=== PATIENT | female | born 1970 | race Caucasian/White ===

== ENCOUNTER → 2016-04-02 | Outpatient (CLI) | payer OTHER ==
--- NOTE | 2016-04-06 07:02 | MM ---
Reason for exam: screening (asymptomatic). Last mammogram was performed 1 year and 3 months ago. Physical Findings: A clinical breast exam by your physician is recommended on an annual basis and results should be correlated with mammographic findings. MG Screening Mammo w CAD Bilateral CC and MLO view(s) were taken. Prior study comparison: January 07, 2015, bilateral MG screening mammo w CAD. The breast tissue is heterogeneously dense. This may lower the sensitivity of mammography. Finding: There is a 5 mm equal density (isodense), indistinct mass in the outer quadrant, posterior position of the left breast seen on CC view, 9cm from the nipple. There is a new distortion in the right breast upper outer quadrant. New finding since January 07, 2015. ASSESSMENT: Incomplete: need additional imaging evaluation, BI-RAD 0 RECOMMENDATION: Special view mammogram of both breasts. If lesion persists on supplemental views, image directed ultrasound is recommended. [facility] will attempt to contact patient to return for supplemental views and ultrasound if indicated.
== END | disposition home or self-care (01) ==
LOC: RADMAMWWP 13:55
PROVIDERS: ATTEND Family Medicine
DX: Z12.31 Encounter for screening mammogram for malignant neoplasm of breast (principal); R92.2 Inconclusive mammogram

== ENCOUNTER → 2016-04-10 | Outpatient (CLI) | payer OTHER ==
--- NOTE | 2016-04-13 08:08 | MM ---
Reason for exam: additional evaluation requested from abnormal screening. Last mammogram was performed less than 1 month ago. Physical Findings: Nurse did not find any significant physical abnormalities on exam. MG Work Up Mamm w CAD BILAT Bilateral spot compression CC and LM view(s) were taken. Spot compression MLO view(s) were taken of the right breast. Prior study comparison: April 02, 2016, bilateral MG screening mammo w CAD. January 07, 2015, bilateral MG screening mammo w CAD. Finding: There is a 5 mm indistinct round mass in the outer quadrant, posterior middle position of the left breast. No distinct lesion on additional views in the right breast. These results were verbally communicated with the patient and result sheet given to the patient on 04/10/16. ASSESSMENT: Incomplete: need additional imaging evaluation, BI-RAD 0 RECOMMENDATION: Ultrasound of the left breast.
--- NOTE | 2016-04-13 08:09 | USB ---
Reason for exam: additional evaluation requested from abnormal screening. US Breast Workup Limited LT Left breast ultrasound demonstrates a 0.2 x 0.2 x 0.2cm round lesion too small to characterize at 1 o'clock and a 0.6 x 0.7 x 0.3cm oval, mixed, hypoechoic lesion at 3 o'clock. These results were verbally communicated with the patient and result sheet given to the patient on 04/10/16. ASSESSMENT: Probably benign, BI-RAD 3 RECOMMENDATION: Follow-up diagnostic mammogram and ultrasound of the left breast in 6 months.
== END | disposition home or self-care (01) ==
LOC: RADMAMWWP 14:58
PROVIDERS: ATTEND Family Medicine
DX: R92.8 Other abnormal and inconclusive findings on diagnostic imaging of breast (principal)
CPT/HCPCS: 76642; G0204

== ENCOUNTER 2016-04-12 13:53 | Emergency (ER) | payer OTHER ==
[2016-04-12] MEDS ORDERED: KETOROLAC 60 MG/2 ML VIAL IM STA (15:08)
--- NOTE | 2016-04-12 15:08 | ED ---
General Adult HPI - General Chief complaint: Headache Stated complaint: Severe Migraine Time Seen by Provider: 04/12/16 15:00 Source: patient, RN notes reviewed Mode of arrival: ambulatory Limitations: no limitations - History of Present Illness Initial comments: Patient 46-year-old female who presents emergency room today with chief complaint of migraine headache. She does admit that she gets tension in the back of her neck which causes these migraines. States is chronic she been having them since she was a child. She states Toradol usually relieves it. Patient also admits to with the change in weather some sinus issues but has been using her Flonase and Tylenol sinus at home for the symptoms. Patient states she is feeling a little bit better while being here in the emergency room waiting to be seen. She states that she thinks it's improving on its own. Patient denies any other complaints or symptoms. She states all the symptoms are chronic that she is expressing the past and there is nothing new today. Patient denies any recent fever, chills, shortness of breath, chest pain, back pain, abdominal pain, nausea or vomiting, numbness or tingling, dysuria or hematuria, constipation or diarrhea, visual changes, or any other complaints. - Related Data Home Medications Medication Instructions Recorded Confirmed Butalb/Acetaminophen/Caffeine 1 - 2 cap PO Q4HR 12/06/15 04/12/16 [Fioricet 50-300-40 mg Capsule] DULoxetine HCL [Cymbalta] 60 mg PO DAILY 12/06/15 04/12/16 Fluticasone Propionate [Flonase 1 spray EA NOSTRIL DAILY PRN 12/06/15 04/12/16 Allergy Relief] Methadone [Dolophine] 10 mg PO Q8HR 12/06/15 04/12/16 Methocarbamol [Robaxin] 750 mg PO HS 12/06/15 04/12/16 buPROPion HCL [Wellbutrin SR] 150 mg PO HS 12/06/15 04/12/16 traZODone HCL 50 mg PO HS 12/06/15 04/12/16 Turmeric Root Extract [Turmeric] 500 mg PO DAILY 04/12/16 04/12/16 Allergies Allergy/AdvReac Type Severity Reaction Status Date / Time Sulfa (Sulfonamide Allergy Rash/Hives Verified 04/12/16 15:01 Antibiotics) sumatriptan [From Imitrex] Allergy Anaphylaxis Verified 04/12/16 15:01 sumatriptan succinate Allergy Anaphylaxis Verified 04/12/16 15:01 [From Imitrex] Review of Systems ROS Statement: Those systems with pertinent positive or pertinent negative responses have been documented in the HPI. ROS Other: All systems not noted in ROS Statement are negative. Past Medical History Additional Past Medical History / Comment(s): migraines History of Any Multi-Drug Resistant Organisms: None Reported Past Surgical History: Appendectomy, Section Additional Past Surgical History / Comment(s): oopherectomy Past Psychological History: Anxiety, Depression Smoking Status: Current every day smoker Past Alcohol Use History: Occasional Past Drug Use History: None Reported General Exam - General Exam Comments Initial Comments: General: The patient is awake and alert, in no distress, and does not appear acutely ill. Eye: Pupils are equal, round and reactive to light, extra-ocular movements are intact. No nystagmus. There is normal conjunctiva bilaterally. No signs of icterus. Ears, nose, mouth and throat: There are moist mucous membranes and no oral lesions. No tenderness over the frontal or maxillary sinus. Neck: The neck is supple, there is no tenderness or JVD. Cardiovascular: There is a regular rate and rhythm. No murmur, rub or gallop is appreciated. Respiratory: Lungs are clear to auscultation, respirations are non-labored, breath sounds are equal. No wheezes, stridor, rales, or rhonchi. Musculoskeletal: Normal ROM, no tenderness. Strength 5/5. Sensation intact. Pulses equal bilaterally 2+. Neurological: A&O x 3. CN II-XII intact, There are no obvious motor or sensory deficits. Coordination appears grossly intact. Speech is normal. Skin: Skin is warm and dry and no rashes or lesions are noted. Psychiatric: Cooperative, appropriate mood & affect, normal judgment. Limitations: no limitations Course Vital Signs 04/12/16 14:26 Temperature 97.7 F Pulse Rate 71 Respiratory 18 Rate Blood Pressure 113/71 O2 Sat by Pulse 100 Oximetry Medical Decision Making - Medical Decision Making Patient admits that while she was waking up he seems she began feeling a little bit better. She admits will typically helps with these headaches. Patient will be given shot of Toradol discharged home advised continue with her sinus medication and advised follow-up the family doctor or return here to the emergency room if any symptoms increase worsen. She states understanding and is in agreement with this plan. Disposition Clinical Impression: Migraine Disposition: HOME SELF-CARE Condition: Good Instructions: Acute Headache (ED) Additional Instructions: Please use medication as discussed. Please follow-up with family doctor in the next 2 days of symptoms have not improved. Please return to emergency room if the symptoms increase or worsen or for any other concerns. Time of Disposition: 15:07
[2016-04-12 15:32] VITALS: BP 117/77; PULSE 74; RESP 16; TEMP 99.1
== END 2016-04-12 15:32 | disposition home or self-care (01) ==
LOC: EC 13:53
DX: G43.909 Migraine, unspecified, not intractable, without status migrainosus (principal); F41.9 Anxiety disorder, unspecified; F32.9 Major depressive disorder, single episode, unspecified; F17.200 Nicotine dependence, unspecified, uncomplicated; Z79.51 Long term (current) use of inhaled steroids; Z79.891 Long term (current) use of opiate analgesic; Z88.8 Allergy status to other drugs, medicaments and biological substances; Z88.2 Allergy status to sulfonamides; Z79.899 Other long term (current) drug therapy
CPT/HCPCS: 99283; 96372; J1885

== ENCOUNTER → 2016-04-27 | Outpatient (CLI) | payer OTHER ==
[2016-04-27 12:53] LABS: Basophils # (A) 0.1 k/uL (0-0.2); Basophils % (A) 1 %; CH 31.2; CHCM 34.1; Eosinophils # (A) 0.1 k/uL (0-0.7); Eosinophils % (A) 2 %; HCT 43.9 % (34.0-46.0); HDW 2.41; HGB 14.7 gm/dL (11.4-16.0); Luc # (Auto) 0.15; Luc % (Auto) 2; Lymphocytes # (A) 2.5 k/uL (1.0-4.8); Lymphocytes % (A) 34 %; MCH 30.7 pg (25.0-35.0); MCHC 33.4 g/dL (31.0-37.0); MCV 91.9 fL (80.0-100.0); Monocytes # (A) 0.3 k/uL (0-1.0); Monocytes % (A) 3 %; Neutrophils # (A) 4.5 k/uL (1.3-7.7); Neutrophils % (A) 59 %; RBC 4.78 m/uL (3.80-5.40); RDW 12.4 % (11.5-15.5); WBC 7.5 k/uL (3.8-10.6); WBC (Perox) 7.34
[2016-04-27 12:59] LABS: ALT 33 U/L (9-52); AST 25 U/L (14-36); Alkaline Phosphatase 98 U/L (38-126); Anion Gap 11 mmol/L; Blood Urea Nitrogen 17 mg/dL (7-17); Calcium 9.8 mg/dL (8.4-10.2); Carbon Dioxide 27 mmol/L (22-30); Chloride 104 mmol/L (98-107); Cholesterol 224 mg/dL (<200); Glucose 92 mg/dL (74-99); HDL Cholesterol 48 mg/dL (40-60); Non-African American GFR(MDRD) >60 (>60 ml/min/1.73 sqM); Potassium 4.2 mmol/L (3.5-5.1); Sodium 142 mmol/L (137-145); Total Bilirubin 0.6 mg/dL (0.2-1.3); Triglycerides 158 mg/dL (<150)
== END ==
LOC: LABWHC1 12:21
PROVIDERS: ATTEND Family Medicine
DX: Z09 Encounter for follow-up examination after completed treatment for conditions other than malignant neoplasm (principal); Z72.0 Tobacco use
CPT/HCPCS: 36415; 80053; 80061; 84443; 84480; 85025

== ENCOUNTER 2016-04-28 12:13 | Emergency (ER) | payer OTHER ==
[2016-04-28] MEDS ORDERED: KETOROLAC 60 MG/2 ML VIAL IM STA (13:30)
--- NOTE | 2016-04-28 13:36 | ED ---
General Adult HPI - General Chief complaint: Back Pain/Injury Stated complaint: back pain Time Seen by Provider: 04/28/16 13:00 Source: patient, RN notes reviewed Mode of arrival: ambulatory Limitations: no limitations - History of Present Illness Initial comments: This is a 46-year-old female who presents with muscle spasm in the back and neck. 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 Patient states she's been trying heating pads that she takes Robaxin for this pain but it is not helping. Patient is requesting Toradol as this usually helps with her pain. Patient denies any fall or injury, patient did not hit her head. Patient denies any increasing lower back pain. Patient denies any numbness/tingling/weakness or radicular pain.Patient denies any recent fever, chills, shortness breath, chest pain, abdominal pain, nausea/vomiting/diarrhea, hematuria, headache, or visual changes, or any other complaints. - Related Data Home Medications Medication Instructions Recorded Confirmed Butalb/Acetaminophen/Caffeine 1 - 2 cap PO Q4HR 12/06/15 04/12/16 [Fioricet 50-300-40 mg Capsule] DULoxetine HCL [Cymbalta] 60 mg PO DAILY 12/06/15 04/12/16 Fluticasone Propionate [Flonase 1 spray EA NOSTRIL DAILY PRN 12/06/15 04/12/16 Allergy Relief] Methadone [Dolophine] 10 mg PO Q8HR 12/06/15 04/12/16 Methocarbamol [Robaxin] 750 mg PO HS 12/06/15 04/12/16 buPROPion HCL [Wellbutrin SR] 150 mg PO HS 12/06/15 04/12/16 traZODone HCL 50 mg PO HS 12/06/15 04/12/16 Turmeric Root Extract [Turmeric] 500 mg PO DAILY 04/12/16 04/12/16 Previous Rx's Medication Instructions Recorded Cyclobenzaprine [Flexeril] 5 mg PO BID 3 Days 04/28/16 Allergies Allergy/AdvReac Type Severity Reaction Status Date / Time Sulfa (Sulfonamide Allergy Rash/Hives Verified 04/28/16 12:33 Antibiotics) sumatriptan [From Imitrex] Allergy Anaphylaxis Verified 04/28/16 12:33 sumatriptan succinate Allergy Anaphylaxis Verified 04/28/16 12:33 [From Imitrex] Review of Systems ROS Statement: Those systems with pertinent positive or pertinent negative responses have been documented in the HPI. ROS Other: All systems not noted in ROS Statement are negative. Past Medical History Additional Past Medical History / Comment(s): migraines History of Any Multi-Drug Resistant Organisms: None Reported Past Surgical History: Appendectomy, Section Additional Past Surgical History / Comment(s): oopherectomy Past Psychological History: Anxiety, Depression Smoking Status: Current every day smoker Past Alcohol Use History: Occasional Past Drug Use History: None Reported General Exam - General Exam Comments Initial Comments: General: The patient is awake and alert, in no distress, and does not appear acutely ill. Neck: There is tenderness to the left side neck muscles and to the left side trapezius muscle. The neck is supple, there is no JVD. Cardiovascular: There is a regular rate and rhythm. No murmur, rub or gallop is appreciated. Respiratory: Lungs are clear to auscultation, respirations are non-labored, breath sounds are equal. No wheezes, stridor, rales, or rhonchi. Musculoskeletal:There is tenderness to the paraspinal muscles of the upper thoracic spine. Patient has pain with rotating head to the left but is able to rotate the head to the right. Patient has full range of motion to upper and lower extremities, strength 5/5 and Sensation intact. Radial pulses 2+ bilaterally. Patient is ambulatory in the EC. Neurological: A&O x 3. CN II-XII intact, There are no obvious motor or sensory deficits. Coordination appears grossly intact. Speech is normal. Skin: Skin is warm and dry and no rashes or lesions are noted. Psychiatric: Normal mood and affect. 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 On physical exam There is tenderness to palpation of the paraspinal muscles of the upper thoracic spine. Patient also has tenderness to the left side neck and pain is worse with rotating head to the left, but patient is able to rotate head to the right. Patient is afebrile in the EC. Patient is requesting Toradol in the EC. I discussed that patient will receive Toradol in the EC and a short prescription for Flexeril. I discussed that patient should not take Robaxin while she is taking Flexeril. I discussed sedation effects. I discussed return parameters. I discussed that patient needs to follow-up with her primary care provider in one to 2 days or return to the EC for any worsening symptoms or for any further concerns. Patient was receptive to this plan patient will be discharged home. Disposition Clinical Impression: Muscle spasm, Cervical strain Disposition: HOME SELF-CARE Condition: Good Instructions: Cervical Strain (ED) Additional Instructions: Please continue use of warm heating pads to areas of pain. Please continue use of ibuprofen, Tylenol and Motrin. Please use Flexeril as prescribed and do not drink alcohol or drive while on this medication as it may make you drowsy. Please discontinue Robaxin while taking Flexeril. Please use medication as discussed. Please follow-up with family doctor in the next 2 days of symptoms have not improved. Please return to emergency room if the symptoms increase or worsen or for any other concerns. Prescriptions: Cyclobenzaprine [Flexeril] 5 mg PO BID 3 Days Referrals: Melony Carnes MD [Primary Care Provider] - 1-2 days Isabella Leone MD [STAFF PHYSICIAN] - 1-2 days Ritesh Wong III, MD [STAFF PHYSICIAN] - 1-2 days Time of Disposition: 13:35
[2016-04-28 13:53] VITALS: BP 95/72; PULSE 70; RESP 14; TEMP 98.3
== END 2016-04-28 13:53 | disposition home or self-care (01) ==
LOC: EC 12:13
DX: S16.1XXA Strain of muscle, fascia and tendon at neck level, initial encounter (principal); X50.0XXA Overexertion from strenuous movement or load, initial encounter; Y93.F2 Activity, caregiving, lifting; Y92.009 Unspecified place in unspecified non-institutional (private) residence as the place of occurrence of the external cause; G43.909 Migraine, unspecified, not intractable, without status migrainosus; F32.9 Major depressive disorder, single episode, unspecified; F41.9 Anxiety disorder, unspecified; F17.200 Nicotine dependence, unspecified, uncomplicated; Z79.891 Long term (current) use of opiate analgesic; Z79.51 Long term (current) use of inhaled steroids; Z79.899 Other long term (current) drug therapy; Z88.2 Allergy status to sulfonamides; Z88.8 Allergy status to other drugs, medicaments and biological substances
CPT/HCPCS: 99283; 96372; J1885

== ENCOUNTER → 2016-07-24 | Outpatient (CLI) | payer OTHER ==
--- NOTE | 2016-07-27 07:01 | MM ---
Reason for exam: follow-up at short interval from prior study. Last mammogram was performed 3 months ago. Physical Findings: Nurse did not find any significant physical abnormalities on exam. MG Diagnostic Mammo LT w CAD CC and MLO view(s) were taken of the left breast. Prior study comparison: April 10, 2016, bilateral MG work up mamm w CAD BILAT. April 02, 2016, bilateral MG screening mammo w CAD. There are scattered fibroglandular densities. Stable nodular density upper outer quadrant left breast. No significant new findings when compared with previous films. These results were verbally communicated with the patient and result sheet given to the patient on 07/24/16. ASSESSMENT: Benign, BI-RAD 2 RECOMMENDATION: Routine screening mammogram of both breasts in 1 year.
--- NOTE | 2016-07-27 07:03 | USB ---
Reason for exam: additional evaluation requested from abnormal screening. US Breast LT Left breast ultrasound includes all four quadrants, the retroareolar region and axilla. Finding demonstrates a 0.2 x 0.3 x 0.2cm oval too small to characterize lesion at 1 o'clock. No significant new findings when compared with previous films. These results were verbally communicated with the patient and result sheet given to the patient on 07/24/16. ASSESSMENT: Benign, BI-RAD 2 RECOMMENDATION: Routine screening mammogram of both breasts in 1 year.
== END | disposition home or self-care (01) ==
LOC: RADMAMWWP 13:30
PROVIDERS: ATTEND Family Medicine
DX: N60.02 Solitary cyst of left breast (principal)
CPT/HCPCS: 76641; G0206

== ENCOUNTER 2016-08-08 19:29 | Emergency (ER) | payer OTHER ==
[2016-08-08 19:46] VITALS: BP 113/64; PULSE 90; RESP 18; TEMP 98
--- NOTE | 2016-08-08 19:58 | ED ---
Skin/Abscess/FB HPI - General Chief complaint: Skin/Abscess/Foreign Body Stated complaint: Lump on arm Time Seen by Provider: 08/08/16 19:44 Source: patient, RN notes reviewed Mode of arrival: ambulatory - History of Present Illness Initial comments: 46-year-old female presents emergency 5 chief complaint of abscess to the right forearm. Patient states that she started with a small bump and is slowly gotten worse. Patient states it is tender to touch. Patient has a history of MRSA or history of abscesses in the past. Patient denies any trauma or injury to the arm. Patient states that she was concerned due to the swelling and pain so she thought that she should be evaluated.Patient denies any recent fever, chills, shortness of breath, chest pain, back pain, abdominal pain, nausea vomiting, numbness or tingling, dysuria or hematuria, constipation or diarrhea, headaches or visual changes, or any other current symptoms. - Related Data Home Medications Medication Instructions Recorded Confirmed Butalb/Acetaminophen/Caffeine 1 - 2 cap PO Q4HR 12/06/15 04/28/16 [Fioricet 50-300-40 mg Capsule] DULoxetine HCL [Cymbalta] 60 mg PO DAILY 12/06/15 04/28/16 Fluticasone Propionate [Flonase 1 spray EA NOSTRIL DAILY PRN 12/06/15 04/28/16 Allergy Relief] Methadone [Dolophine] 10 mg PO Q8HR 12/06/15 04/28/16 Methocarbamol [Robaxin] 750 mg PO HS 12/06/15 04/28/16 buPROPion HCL [Wellbutrin SR] 150 mg PO HS 12/06/15 04/28/16 traZODone HCL 50 mg PO HS 12/06/15 04/28/16 Turmeric Root Extract [Turmeric] 500 mg PO DAILY 04/12/16 04/28/16 Previous Rx's Medication Instructions Recorded Cyclobenzaprine [Flexeril] 5 mg PO BID 3 Days 04/28/16 Clindamycin [Cleocin] 450 mg PO Q8HR #90 capsule 08/08/16 Allergies Allergy/AdvReac Type Severity Reaction Status Date / Time Sulfa (Sulfonamide Allergy Rash/Hives Verified 04/28/16 13:54 Antibiotics) sumatriptan [From Imitrex] Allergy Anaphylaxis Verified 04/28/16 13:54 sumatriptan succinate Allergy Anaphylaxis Verified 04/28/16 13:54 [From Imitrex] Review of Systems ROS Statement: Those systems with pertinent positive or pertinent negative responses have been documented in the HPI. ROS Other: All systems not noted in ROS Statement are negative. Past Medical History Additional Past Medical History / Comment(s): migraines History of Any Multi-Drug Resistant Organisms: None Reported Past Surgical History: Appendectomy, Section Additional Past Surgical History / Comment(s): oopherectomy Past Psychological History: Anxiety, Depression Smoking Status: Current every day smoker Past Alcohol Use History: Rare Past Drug Use History: None Reported General Exam - General Exam Comments Initial Comments: General: The patient is awake and alert, in no distress, and does not appear acutely ill. Neck: The neck is supple, there is no tenderness. Cardiovascular: There is a regular rate and rhythm. No murmur, rub or gallop is appreciated. Respiratory: Lungs are clear to auscultation, respirations are non-labored, breath sounds are equal. No wheezes, stridor, rales, or rhonchi. Musculoskeletal: sensation intact with 2+ pulses right upper joint. Full range of motion of right shoulder right elbow and right wrist. Patient appeared to have a circular erythematous abscess to the right forearm. 5 out of 5 strength throughout. Neurological: CN II-XII intact, There are no obvious motor or sensory deficits. Coordination appears grossly intact. Speech is normal. Skin: Skin is warm and dry and no rashes or lesions are noted. Psychiatric: Normal mood and affect. Course Vital Signs 08/08/16 19:44 Temperature 98.0 F Pulse Rate 90 Respiratory 18 Rate Blood Pressure 113/64 O2 Sat by Pulse 97 Oximetry Procedures - Procedures Initial comment: Procedure: Incision and drainage The skin overlying the abscess was prepped with Betadine, and anesthetized with 1% lidocaine without epinephrine. A #11 scalpel was then used to incise the abscess. Some purulent material was then extracted from the lesion. Gauze dressing placed on top, The patient tolerated the procedure well. Medical Decision Making - Medical Decision Making 46-year-old female presents to the emergency Department chief complaint of right forearm abscess. At this time the patient under went I&D. We discussed care follow-up return parameters. We discussed the follow-up and care. Patient states she understood all questions have been answered. She will be discharged. Disposition Clinical Impression: Abscess of right forearm Disposition: HOME SELF-CARE Condition: Stable Instructions: Abscess (ED), Abscess Incision and Drainage (ED) Additional Instructions: Please use medication as discussed. Please follow up with family doctor if symptoms have not improved over the next two days. Please return to the emergency room if your symptoms increase or worsen or for any other concerns. Prescriptions: Clindamycin [Cleocin] 450 mg PO Q8HR #90 capsule Referrals: Melony Carnes MD [Primary Care Provider] - 1-2 days Time of Disposition: 19:58
== END 2016-08-08 20:04 | disposition home or self-care (01) ==
LOC: EC 19:29
DX: L02.413 Cutaneous abscess of right upper limb (principal); F32.9 Major depressive disorder, single episode, unspecified; F41.9 Anxiety disorder, unspecified; F17.200 Nicotine dependence, unspecified, uncomplicated; Z79.899 Other long term (current) drug therapy; Z88.2 Allergy status to sulfonamides; Z88.8 Allergy status to other drugs, medicaments and biological substances
CPT/HCPCS: 10060; 99283

== ENCOUNTER 2016-08-14 13:23 | Emergency (ER) | payer OTHER ==
[2016-08-14 13:29] VITALS: BP 110/75; TEMP 98.3
[2016-08-14 13:35] VITALS: RESP 18
[2016-08-14] MEDS ORDERED: ACETAMINOPHEN TAB 325 MG TAB PO STA (13:42)
[2016-08-14] MEDS ORDERED: IPRATROPIUM-ALBUTEROL 3 ML NEB INHALATION STA (13:44)
--- NOTE | 2016-08-14 13:59 | ED ---
URI HPI - General Chief Complaint: Upper Respiratory Infection Stated Complaint: sore throat Time Seen by Provider: 08/14/16 13:32 Source: patient Mode of arrival: ambulatory Limitations: no limitations - History of Present Illness Initial Comments: Patient is a 46-year-old white female presenting to the emergency department with medical history significant for seasonal ALLERGIES and current nicotine dependence. Patient presents to the emergency department with chief complaint of cough and sore throat that started approximately 4 days ago. Patient is currently being treated with clindamycin for an abscess on her right forearm. MD Complaint: sore throat Onset/Timin -: days(s) Severity: moderate Severity scale (1-10): 6 Quality: aching Consistency: intermittent Improves With: OTC nasal spray, gargling Associated Symptoms: nasal congestion, cough Treatments Prior to Arrival: none - Related Data Home Medications Medication Instructions Recorded Confirmed Butalb/Acetaminophen/Caffeine 1 - 2 cap PO Q4HR 12/06/15 04/28/16 [Fioricet 50-300-40 mg Capsule] DULoxetine HCL [Cymbalta] 60 mg PO DAILY 12/06/15 04/28/16 Fluticasone Propionate [Flonase 1 spray EA NOSTRIL DAILY PRN 12/06/15 04/28/16 Allergy Relief] Methadone [Dolophine] 10 mg PO Q8HR 12/06/15 04/28/16 Methocarbamol [Robaxin] 750 mg PO HS 12/06/15 04/28/16 buPROPion HCL [Wellbutrin SR] 150 mg PO HS 12/06/15 04/28/16 traZODone HCL 50 mg PO HS 12/06/15 04/28/16 Turmeric Root Extract [Turmeric] 500 mg PO DAILY 04/12/16 04/28/16 Previous Rx's Medication Instructions Recorded Cyclobenzaprine [Flexeril] 5 mg PO BID 3 Days 04/28/16 Clindamycin [Cleocin] 450 mg PO Q8HR #90 capsule 08/08/16 Albuterol Inhaler [Ventolin Hfa 1 - 2 puff INHALATION Q6HR PRN #1 08/14/16 Inhaler] inhaler Benzonatate [Tessalon Perles] 100 mg PO TID PRN #20 capsule 08/14/16 methylPREDNISolone Dose Pack 4 mg PO DIRECTED #21 package 08/14/16 [Medrol Dose Pack] Allergies Allergy/AdvReac Type Severity Reaction Status Date / Time Sulfa (Sulfonamide Allergy Rash/Hives Verified 08/14/16 13:51 Antibiotics) sumatriptan [From Imitrex] Allergy Anaphylaxis Verified 08/14/16 13:51 sumatriptan succinate Allergy Anaphylaxis Verified 08/14/16 13:51 [From Imitrex] Review of Systems ROS Statement: Those systems with pertinent positive or pertinent negative responses have been documented in the HPI. ROS Other: All systems not noted in ROS Statement are negative. Past Medical History Additional Past Medical History / Comment(s): migraines History of Any Multi-Drug Resistant Organisms: None Reported Past Surgical History: Appendectomy, Section Additional Past Surgical History / Comment(s): oopherectomy Past Psychological History: Anxiety, Depression Smoking Status: Current every day smoker Past Alcohol Use History: Rare Past Drug Use History: None Reported General Exam - General Exam Comments Initial Comments: GENERAL: Pt awake and alert, well-appearing, well-nourished, and in no acute distress. HEAD: Atraumatic, normocephalic. EYES: Pupils equal, round, and reactive to light, extraocular movements intact, sclera anicteric, conjunctiva are normal. ENT: Oropharynx slightly erythematous without exudates. Moist mucous membranes. No oral lesions noted. NECK:Normal range of motion, supple without lymphadenopathy. LUNGS: Breath sounds with mild expiratory wheeze to auscultation bilaterally. HEART: Heart S1, S2, no S3 or S4. Regular rate and rhythm. No murmurs, rubs or gallops. ABDOMEN: Soft, nontender, nondistended, normoactive bowel sounds. No guarding, no rebound. No masses or organomegaly appreciated. MUSCULOSKELETAL: Normal ROM, no tenderness. Strength 5/5. EXTREMITIES: Palpable peripheral pulses. No edema. NEUROLOGICAL: Pt oriented x 3. No focal deficits noted. Strength and sensation grossly intact. PSYCH: Normal mood, normal affect. SKIN: Warm, dry, intact. Normal turgor. Limitations: no limitations ENT exam: Present: TM's normal bilaterally, normal external ear exam Course Vital Signs 08/14/16 08/14/16 08/14/16 13:25 13:33 13:53 Temperature 98.3 F Pulse Rate 84 Respiratory 16 18 18 Rate Blood Pressure 110/75 O2 Sat by Pulse 95 Oximetry Medical Decision Making - Medical Decision Making Upper respiratory infection suspect viral. Patient educated on conservative measures and provided with prescription for Medrol Dosepak, Tessalon Perles, and albuterol inhaler. Patient instructed to follow-up with primary care physician. Patient agrees with treatment plan. Discharge instructions and return parameters reviewed. Disposition Clinical Impression: Upper respiratory infection Disposition: HOME SELF-CARE Condition: Good Instructions: Upper Respiratory Infection (ED) Additional Instructions: Increase water intake to 6-8 glasses of water daily. Continue Mucinex SR to prescribed. Continue Neti pot 3 times daily. Continue Claritin and Flonase. Continue Tylenol or Motrin for pain. Finish Medrol Dosepak. Continue albuterol inhaler every 4-6 hours 1-2 puffs as needed. Continue Tessalon Pearls 3 times daily as needed. Follow-up with primary care physician as directed. Please return to the emergency department if symptoms do not improve or get worse. Prescriptions: Albuterol Inhaler [Ventolin Hfa Inhaler] 1 - 2 puff INHALATION Q6HR PRN #1 inhaler PRN Reason: Shortness Of Breath Benzonatate [Tessalon Perles] 100 mg PO TID PRN #20 capsule PRN Reason: Cough methylPREDNISolone Dose Pack [Medrol Dose Pack] 4 mg PO DIRECTED #21 package Referrals: Melony Carnes MD [Primary Care Provider] - 1-2 days Time of Disposition: 13:57
[2016-08-14 14:17] VITALS: PULSE 76
== END 2016-08-14 14:10 | disposition home or self-care (01) ==
LOC: EC 13:23
DX: J06.9 Acute upper respiratory infection, unspecified (principal); F32.9 Major depressive disorder, single episode, unspecified; F17.200 Nicotine dependence, unspecified, uncomplicated; Z88.2 Allergy status to sulfonamides; Z88.8 Allergy status to other drugs, medicaments and biological substances; Z79.899 Other long term (current) drug therapy
CPT/HCPCS: 94640; 99283

== ENCOUNTER 2016-08-20 10:57 | Emergency (ER) | payer OTHER ==
[2016-08-20 11:04] VITALS: RESP 16; TEMP 97.7
[2016-08-20] MEDS ORDERED: METOCLOPRAMIDE 5 MG/ML 2 ML VIAL IM ONE (11:25)
[2016-08-20] MEDS ORDERED: KETOROLAC 60 MG/2 ML VIAL IM STA (11:25)
[2016-08-20] MEDS ORDERED: MORPHINE SULFATE 10 MG/ML SYRINGE IM STA (11:25)
--- NOTE | 2016-08-20 11:37 | ED ---
General Adult HPI - General Chief complaint: Headache Stated complaint: MIGRAINE Time Seen by Provider: 08/20/16 11:21 Source: patient, RN notes reviewed Mode of arrival: ambulatory Limitations: no limitations - History of Present Illness Initial comments: Patient is a pleasant 46-year-old female presenting to the emergency department complaining of headache. Onset was around 8 AM when she woke today. Headache has gradually worsened since that time. Headache is right frontal region. Patient has photophobia and mild nausea. Patient has had similar symptoms multiple times since age 5. Patient has had multiple CT/MRI studies. No fever. No weakness. - Related Data Home Medications Medication Instructions Recorded Confirmed Butalb/Acetaminophen/Caffeine 1 - 2 cap PO Q4HR PRN 12/06/15 08/14/16 [Fioricet 50-300-40 mg Capsule] DULoxetine HCL [Cymbalta] 60 mg PO DAILY 12/06/15 08/14/16 Fluticasone Propionate [Flonase 1 spray EA NOSTRIL DAILY PRN 12/06/15 08/14/16 Allergy Relief] Methadone [Dolophine] 10 mg PO Q8HR 12/06/15 08/14/16 Methocarbamol [Robaxin] 750 mg PO HS 12/06/15 08/14/16 buPROPion HCL [Wellbutrin SR] 150 mg PO HS 12/06/15 08/14/16 traZODone HCL 50 mg PO HS 12/06/15 08/14/16 Turmeric Root Extract [Turmeric] 500 mg PO DAILY 04/12/16 08/14/16 Previous Rx's Medication Instructions Recorded Cyclobenzaprine [Flexeril] 5 mg PO BID 3 Days 04/28/16 Clindamycin [Cleocin] 450 mg PO Q8HR #90 capsule 08/08/16 Albuterol Inhaler [Ventolin Hfa 1 - 2 puff INHALATION Q6HR PRN #1 08/14/16 Inhaler] inhaler Benzonatate [Tessalon Perles] 100 mg PO TID PRN #20 capsule 08/14/16 methylPREDNISolone Dose Pack 4 mg PO DIRECTED #21 package 08/14/16 [Medrol Dose Pack] Allergies Allergy/AdvReac Type Severity Reaction Status Date / Time Sulfa (Sulfonamide Allergy Rash/Hives Verified 08/20/16 11:04 Antibiotics) sumatriptan [From Imitrex] Allergy Anaphylaxis Verified 08/20/16 11:04 sumatriptan succinate Allergy Anaphylaxis Verified 08/20/16 11:04 [From Imitrex] Review of Systems ROS Statement: Those systems with pertinent positive or pertinent negative responses have been documented in the HPI. ROS Other: All systems not noted in ROS Statement are negative. Constitutional: Denies: fever Eyes: Denies: eye pain ENT: Denies: ear pain Respiratory: Denies: cough Cardiovascular: Denies: chest pain Endocrine: Denies: fatigue Gastrointestinal: Reports: nausea. Denies: abdominal pain Genitourinary: Denies: dysuria Musculoskeletal: Denies: back pain Skin: Denies: rash Neurological: Reports: headache Past Medical History Additional Past Medical History / Comment(s): migraines History of Any Multi-Drug Resistant Organisms: None Reported Past Surgical History: Appendectomy, Section Additional Past Surgical History / Comment(s): oopherectomy Past Psychological History: Anxiety, Depression Smoking Status: Current every day smoker Past Alcohol Use History: Rare Past Drug Use History: None Reported General Exam Limitations: no limitations General appearance: alert, in no apparent distress Head exam: Present: atraumatic Eye exam: Present: normal appearance, PERRL, EOMI ENT exam: Present: normal oropharynx Neck exam: Present: normal inspection Respiratory exam: Present: normal lung sounds bilaterally Cardiovascular Exam: Present: regular rate, normal rhythm GI/Abdominal exam: Present: soft. Absent: tenderness Extremities exam: Present: normal inspection Neurological exam: Present: alert Expanded Patient oriented to: Present: person, place, time Cranial nerves: Facial Sensation: Normal Sensory exam: Upper Extremity Light Touch: Normal, Lower Extremity Light Touch: Normal Motor strength exam: RUE: 5, LUE: 5, RLE: 5, LLE: 5 Eye Response: (4) open spontaneously Motor Response: (6) obeys commands Verbal Response: (5) oriented Psychiatric exam: Present: normal affect, normal mood Skin exam: Present: normal color Course Vital Signs 08/20/16 11:02 Temperature 97.7 F Pulse Rate 71 Respiratory 16 Rate Blood Pressure 115/79 O2 Sat by Pulse 92 L Oximetry Medical Decision Making - Medical Decision Making Patient is comfortable with injections and discharged. Disposition Clinical Impression: Cephalgia Disposition: HOME SELF-CARE Condition: Stable Instructions: Acute Headache (ED) Additional Instructions: Please follow-up with your doctor in the next day or 2 for recheck. Return for fever, weakness, change or worsening symptoms or other concerns. Referrals: Melony Carnes MD [Primary Care Provider] - 1-2 days Time of Disposition: 11:37
[2016-08-20 12:08] VITALS: BP 110/77; PULSE 81
== END 2016-08-20 12:11 | disposition home or self-care (01) ==
LOC: EC 10:57
DX: R51 Headache (principal); R11.0 Nausea; H53.149 Visual discomfort, unspecified; F41.9 Anxiety disorder, unspecified; F32.9 Major depressive disorder, single episode, unspecified; F17.200 Nicotine dependence, unspecified, uncomplicated; Z53.20 Procedure and treatment not carried out because of patient's decision for unspecified reasons; Z79.899 Other long term (current) drug therapy; Z88.2 Allergy status to sulfonamides; Z88.8 Allergy status to other drugs, medicaments and biological substances; Z86.69 Personal history of other diseases of the nervous system and sense organs
CPT/HCPCS: 99283; 96372 ×2; J2270; J1885

== ENCOUNTER 2017-01-12 01:39 | Emergency (ER) | payer OTHER ==
[2017-01-12 01:44] VITALS: RESP 16
[2017-01-12] MEDS ORDERED: KETOROLAC 30 MG/ML 1 ML VIAL IM STA (02:07)
[2017-01-12] MEDS ORDERED: IBUPROFEN 600 MG STARTER PACK 4 TAB BTL PO STA (02:23)
[2017-01-12] MEDS ORDERED: CYCLOBENZAPRINE 10MG STARTER 3 TAB BTL PO STA (02:23)
--- NOTE | 2017-01-12 02:23 | ED ---
Back Pain HPI - General Chief Complaint: Back Pain/Injury Stated Complaint: back pain Time Seen by Provider: 01/12/17 01:50 Source: patient Limitations: no limitations - History of Present Illness Initial Comments: 46-year-old female patient presents to the emergency department today with complaints of lower thoracic spine pain. Patient states that she has had this pain over the last month. 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 She states that ever since she performed these shifts she has been having this pain. States that she has been seen by her primary doctor as well as evaluated here and did have x-rays performed. She states that she has bulging disks to the area. She states that she is post undergo MRI and has an appointment with her primary doctor, however this evening the pain was making it difficult for her to sleep. She denies any change in the pain over the last month. She states that the pain does radiate around her ribs. She states that she has had the rib pain with this for the last 2 weeks. She denies any shortness of breath, sweats, or chest pain with this. She states that she has been mildly nauseated over the last couple weeks as well but this is not unusual for her. She denies any radiation of the pain to her lower back or down her legs. She denies any numbness or tingling to her lower extremities. She denies any loss of bowel or bladder function. She denies any saddle anesthesia. Patient denies any recent rash, fever, chills,abdominal pain, vomiting, diarrhea, constipation, dizziness , weakness, hematuria, dysuria, urinary urgency, urinary frequency, headache, visual changes, or any other complaints. - Related Data Home Medications Medication Instructions Recorded Confirmed Butalb/Acetaminophen/Caffeine 1 - 2 cap PO Q4HR PRN 12/06/15 12/27/16 [Fioricet 50-300-40 mg Capsule] DULoxetine HCL [Cymbalta] 60 mg PO DAILY 12/06/15 12/27/16 Fluticasone Propionate [Flonase 1 spray EA NOSTRIL DAILY PRN 12/06/15 12/27/16 Allergy Relief] Methadone [Dolophine] 10 mg PO DAILY 12/06/15 12/27/16 Methocarbamol [Robaxin] 750 mg PO HS 12/06/15 12/27/16 buPROPion HCL [Wellbutrin SR] 150 mg PO HS 12/06/15 12/27/16 traZODone HCL 50 mg PO HS 12/06/15 12/27/16 Turmeric Root Extract [Turmeric] 500 mg PO DAILY 04/12/16 12/27/16 Previous Rx's Medication Instructions Recorded Cyclobenzaprine [Flexeril] 10 mg PO TID #15 tab 01/12/17 Ibuprofen [Motrin] 600 mg PO Q8HR PRN #30 tab 01/12/17 Allergies Allergy/AdvReac Type Severity Reaction Status Date / Time Sulfa (Sulfonamide Allergy Rash/Hives Verified 01/12/17 01:44 Antibiotics) sumatriptan [From Imitrex] Allergy Anaphylaxis Verified 01/12/17 01:44 sumatriptan succinate Allergy Anaphylaxis Verified 01/12/17 01:44 [From Imitrex] Review of Systems ROS Statement: Those systems with pertinent positive or pertinent negative responses have been documented in the HPI. ROS Other: All systems not noted in ROS Statement are negative. Past Medical History Additional Past Medical History / Comment(s): migraines History of Any Multi-Drug Resistant Organisms: None Reported Past Surgical History: Appendectomy, Section Additional Past Surgical History / Comment(s): oopherectomy Past Psychological History: Anxiety, Depression Smoking Status: Current every day smoker Past Alcohol Use History: Rare Past Drug Use History: None Reported General Exam Limitations: no limitations General appearance: alert, in no apparent distress, other (This is a well- developed, well-nourished adult female patient in no acute distress. Vital signs upon presentation are temperature 99.1F, pulse 99, respirations 16, blood pressure 117/58, pulse ox 99% on room air.) Eye exam: Present: normal appearance, PERRL, EOMI. Absent: scleral icterus, conjunctival injection, periorbital swelling Neck exam: Present: normal inspection, full ROM. Absent: tenderness, meningismus, lymphadenopathy Respiratory exam: Present: normal lung sounds bilaterally. Absent: respiratory distress, wheezes, rales, rhonchi, stridor Cardiovascular Exam: Present: regular rate, normal rhythm, normal heart sounds. Absent: systolic murmur, diastolic murmur, rubs, gallop, clicks Back exam: Present: normal inspection, tenderness (She did have some tenderness over the T11-T12 and L1 area.) Neurological exam: Present: alert, oriented X3, CN II-XII intact, other ( Strength in all 4 extremities 5/5.) Psychiatric exam: Present: normal affect, normal mood Skin exam: Present: warm, dry, intact, normal color. Absent: rash Course Vital Signs 01/12/17 01/12/17 01:42 02:56 Temperature 99.1 F 99 F Pulse Rate 99 66 Respiratory 16 16 Rate Blood Pressure 117/58 107/54 O2 Sat by Pulse 99 100 Oximetry Medical Decision Making - Medical Decision Making 46-year-old female patient presented to the emergency department today for evaluation of thoracic back pain. Physical examination was unremarkable. EKG was obtained and did show normal sinus rhythm with no ST elevation or depression. Did review the x-ray report of the thoracic spine from 12/18/2016 which showed thoracic spondylosis and scoliosis, review the x-ray report from of the ribs and chest which showed no rib fractures. Patient was given an injection of Toradol here in the department. She was given starter packs of both ibuprofen and Flexeril for home. She does take methadone for chronic back pain. She is instructed to follow-up with her primary care physician to undergo MRI. She is instructed to return here immediately for any new, worsening, or concerning symptoms. She verbalizes understanding and agrees with this plan. 01/12/17 04:13 EKG shows normal sinus rhythm with a ventricular rate of 85, IN interval 156, QRS duration 92, QT 348, QTC 414. No evidence of ST elevation or depression.= Disposition Clinical Impression: Back pain Disposition: HOME SELF-CARE Condition: Good Instructions: Back Pain (ED) Additional Instructions: Apply warm moist heat to the area. Take medications as directed. Follow-up with her primary care physician for further evaluation. Return here immediately for any new, worsening, or concerning symptoms. Prescriptions: Cyclobenzaprine [Flexeril] 10 mg PO TID #15 tab Ibuprofen [Motrin] 600 mg PO Q8HR PRN #30 tab PRN Reason: Pain Referrals: Melony Carnes MD [Primary Care Provider] - 1-2 days Time of Disposition: 02:23
[2017-01-12 02:57] VITALS: BP 107/54; PULSE 66; TEMP 99
== END 2017-01-12 02:56 | disposition home or self-care (01) ==
LOC: EC 01:39
DX: M54.6 Pain in thoracic spine (principal); R07.81 Pleurodynia; F32.9 Major depressive disorder, single episode, unspecified; F41.9 Anxiety disorder, unspecified; F17.200 Nicotine dependence, unspecified, uncomplicated; Z79.899 Other long term (current) drug therapy; Z88.2 Allergy status to sulfonamides; Z88.8 Allergy status to other drugs, medicaments and biological substances
CPT/HCPCS: 93005; 99283; 96372; J1885

== ENCOUNTER 2017-01-13 23:47 | Emergency (ER) | payer OTHER ==
[2017-01-13 23:52] VITALS: BP 120/59; PULSE 90; RESP 16; TEMP 100.2
[2017-01-14] MEDS ORDERED: KETOROLAC 30 MG/ML 1 ML VIAL IM STA (00:37)
--- NOTE | 2017-01-14 01:03 | XR ---
EXAMINATION TYPE: XR chest 2V DATE OF EXAM: 01/14/2017 COMPARISON: NONE HISTORY: Pain TECHNIQUE: Frontal and lateral views of the chest are obtained. FINDINGS: Heart and mediastinum are normal. Lungs are clear. Diaphragm is normal. Bony thorax is int act. There is no pleural effusion. On the lateral view there is major fissure seen that is prominent and there is probably a tiny amount of fluid in the fissure on the left side. IMPRESSION: Tiny amount of fluid in the left major fissure of uncertain significance.
[2017-01-14] MEDS ORDERED: RX INFO: IV CONTRAST WAS GIVEN 1 EACH MISC MISCELLANE PRN (01:21)
[2017-01-14 01:43] LABS: Basophils # (A) 0.1 k/uL (0-0.2); Basophils % (A) 1 %; CH 28.7; CHCM 31.5; Eosinophils # (A) 0.4 k/uL (0-0.7); Eosinophils % (A) 4 %; HCT 40.3 % (34.0-46.0); HDW 2.44; HGB 12.7 gm/dL (11.4-16.0); Luc # (Auto) 0.09; Luc % (Auto) 1; Lymphocytes # (A) 2.2 k/uL (1.0-4.8); Lymphocytes % (A) 24 %; MCH 28.7 pg (25.0-35.0); MCHC 31.4 g/dL (31.0-37.0); MCV 91.5 fL (80.0-100.0); Mean Platelet Volume 6.5; Monocytes # (A) 0.4 k/uL (0-1.0); Monocytes % (A) 5 %; Neutrophils % (A) 66 %; RBC 4.41 m/uL (3.80-5.40); WBC 9.1 k/uL (3.8-10.6); WBC (Perox) 9.38
[2017-01-14 01:54] LABS: ALT 31 U/L (9-52); AST 16 U/L (14-36); Alkaline Phosphatase 108 U/L (38-126); Anion Gap 7 mmol/L; Blood Urea Nitrogen 15 mg/dL (7-17); Calcium 9.3 mg/dL (8.4-10.2); Carbon Dioxide 26 mmol/L (22-30); Chloride 106 mmol/L (98-107); Glucose 94 mg/dL (74-99); Non-African American GFR(MDRD) >60 (>60 ml/min/1.73 sqM); Potassium 4.2 mmol/L (3.5-5.1); Sodium 139 mmol/L (137-145); Total Bilirubin 0.2 mg/dL (0.2-1.3); Total Protein 6.9 g/dL (6.3-8.2)
--- NOTE | 2017-01-14 02:14 | CT ---
EXAMINATION TYPE: CT thoracic spine wo con DATE OF EXAM: 01/14/2017 COMPARISON: NONE HISTORY: Thoracic pain CT DLP: 446.90 mGycm Automated exposure control for dose reduction was used. FINDINGS: At T8-9 there is some osteosclerosis in the vertebral bodies on both sides of the T8-9 disc space. Th ere are some erosions of the endplates anteriorly. There is abnormal increased soft tissue density in the paraspinal region on the right side more than the left at T10 and T9 T8 T7. I see no mass within the spinal canal. Paraspinal density measures up to 10 mm. I see no compression fracture. Vertebra have normal alignment. There is minor spurring of the endplates anteriorly. The posterior el ements are intact. IMPRESSION: THERE ARE CHANGES AT THE T8-9 DISC WITH EROSION OF THE ENDPLATES ANTERIORLY AND OSTEOSCLEROSIS CONSIS TENT WITH CHRONIC DISCITIS. THERE IS PARASPINAL INFLAMMATORY CHANGES EXTENDING FROM T7 TO T10. I SEE NO DRAINABLE FLUID COLLECTION. I SEE NO EVIDENCE OF A ABSCESS WITHIN THE SPINAL CANAL. THIS EXAM WAS DISCUSSED WITH THE ER AT 2:10 AM.
--- NOTE | 2017-01-14 02:27 | ED ---
Back Pain HPI - General Chief Complaint: Back Pain/Injury Stated Complaint: back pain Time Seen by Provider: 01/14/17 00:24 Source: patient Limitations: no limitations - History of Present Illness Initial Comments: 46-year-old female patient presents to the emergency department today for complaints of mid thoracic back pain that radiates into her bilateral ribs. Patient states that she has had this pain for about a month. Patient states that she has been evaluated for this by both her primary care physician and in the emergency department a couple of times. States that her primary doctor told her she had a bulging disc and was going to be scheduling an MRI for her. Patient states a couple weeks ago the pain started to encompass the ribs. Patient states that she had been managing her pain with her methadone that she takes for chronic pain. She has also been taking ibuprofen and Flexeril which she received as a prescription from her last emergency visit. She states that none of these things helped tonight and she has been unable to sleep. She comes in requesting an injection of Toradol. Upon arrival patient was febrile. Patient was unaware that she had a fever. She does report though that she has had fevers on and off for the last few days. States that yesterday her temperature was 101.5F. Patient denies any headache, neck pain, nasal congestion, sore throat, ear pain, abdominal pain, nausea, vomiting, hematuria, dysuria, urinary frequency, or urinary urgency. She states that she does have an intermittent cough with greenish yellow sputum production. She states that this is a chronic cough for her as she does smoke cigarettes. Patient denies any use of alcohol or street drugs. Denies any past history of IV drug abuse. - Related Data Home Medications Medication Instructions Recorded Confirmed Butalb/Acetaminophen/Caffeine 1 - 2 cap PO Q4HR PRN 12/06/15 12/27/16 [Fioricet 50-300-40 mg Capsule] DULoxetine HCL [Cymbalta] 60 mg PO DAILY 12/06/15 12/27/16 Fluticasone Propionate [Flonase 1 spray EA NOSTRIL DAILY PRN 12/06/15 12/27/16 Allergy Relief] Methadone [Dolophine] 10 mg PO DAILY 12/06/15 12/27/16 Methocarbamol [Robaxin] 750 mg PO HS 10/14/16 11/05/17 buPROPion HCL [Wellbutrin SR] 150 mg PO HS 12/06/15 12/27/16 traZODone HCL 50 mg PO HS 12/06/15 12/27/16 Turmeric Root Extract [Turmeric] 500 mg PO DAILY 04/12/16 12/27/16 Previous Rx's Medication Instructions Recorded Cyclobenzaprine [Flexeril] 10 mg PO TID #15 tab 01/12/17 Ibuprofen [Motrin] 600 mg PO Q8HR PRN #30 tab 01/12/17 Clindamycin [Cleocin] 450 mg PO Q6H #120 capsule 01/14/17 Allergies Allergy/AdvReac Type Severity Reaction Status Date / Time Sulfa (Sulfonamide Allergy Rash/Hives Verified 01/13/17 23:52 Antibiotics) sumatriptan [From Imitrex] Allergy Anaphylaxis Verified 01/13/17 23:52 sumatriptan succinate Allergy Anaphylaxis Verified 01/13/17 23:52 [From Imitrex] Review of Systems ROS Statement: Those systems with pertinent positive or pertinent negative responses have been documented in the HPI. ROS Other: All systems not noted in ROS Statement are negative. Past Medical History Additional Past Medical History / Comment(s): migraines History of Any Multi-Drug Resistant Organisms: None Reported Past Surgical History: Appendectomy, Section Additional Past Surgical History / Comment(s): oopherectomy Past Psychological History: Anxiety, Depression Smoking Status: Current every day smoker Past Alcohol Use History: Rare Past Drug Use History: None Reported General Exam Limitations: no limitations General appearance: alert, in no apparent distress, other (This is a well- developed, well-nourished adult female patient in no acute distress. Vital signs upon presentation were temperature 100.2F, pulse 90, respirations 16, blood pressure 120/59, pulse ox 98% on room air.) Eye exam: Present: normal appearance, PERRL, EOMI. Absent: scleral icterus, conjunctival injection, nystagmus, periorbital swelling ENT exam: Present: normal exam, normal oropharynx, mucous membranes moist Neck exam: Present: normal inspection, full ROM. Absent: tenderness, meningismus, lymphadenopathy Respiratory exam: Present: normal lung sounds bilaterally. Absent: respiratory distress, wheezes, rales, rhonchi, stridor Cardiovascular Exam: Present: regular rate, normal rhythm, normal heart sounds. Absent: systolic murmur, diastolic murmur, rubs, gallop, clicks GI/Abdominal exam: Present: soft, normal bowel sounds. Absent: distended, tenderness, guarding, rebound, rigid Extremities exam: Present: normal inspection, full ROM, normal capillary refill. Absent: tenderness, pedal edema, joint swelling, calf tenderness Back exam: Present: normal inspection, vertebral tenderness (Vertebral tenderness over the mid thoracic spine.) Neurological exam: Present: alert, oriented X3, CN II-XII intact, other ( Strength in all 4 extremities is 5/5.) Psychiatric exam: Present: normal affect, normal mood Skin exam: Present: warm, dry, intact, normal color. Absent: rash Course Vital Signs 01/13/17 23:49 Temperature 100.2 F H Pulse Rate 90 Respiratory 16 Rate Blood Pressure 120/59 O2 Sat by Pulse 98 Oximetry Medical Decision Making - Medical Decision Making 46-year-old female patient presented to the emergency department today for evaluation of mid thoracic back pain. Upon arrival patient was noted to have a fever. She reported intermittent fevers over the last few days with the highest being 101.5F yesterday. This is the patient's third visit to the emergency department for similar symptoms. Physical examination was significant for mid thoracic spinal tenderness. Patient did report a history of bulging disc in the thoracic spine and was scheduled to undergo MRI by her primary care physician. Did perform labs which did show an elevated ESR of 50. Chest x-ray showed a prominent major fissure on the left side with some fluid present. Patient also underwent computed tomography scan of the thoracic spine which did show a chronic discitis with bony destruction and paraspinal inflammatory changes. There was no evidence of abscess. Patient was informed of these findings, and it was recommended that she be transferred to a higher level of care for neurosurgical consult. 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 I did inform her of the seriousness of her condition, I discussed the risks of her leaving to include worsening of her symptoms, worsening of her infection, permanent disability, , and paralysis. She verbalizes understanding but stated that there was no way that she could stay at this time. I recommended that she stay for at least 1 dose of IV antibiotics to include nafcillin and vancomycin. She states that the sooner she gets home the sooner she would be able to return and she refused to stay for the antibiotics. Patient did verbalize understanding of the risks and did sign an AMA form. Patient was given a oral dose of clindamycin here in the department. She was given a prescription for this medication as well. She was urged to come back to this emergency department or any other emergency department as soon as possible. She is instructed to follow-up with her primary doctor if she is unable to return. She verbalizes that she will return this morning after contacting the family of her patient. - Lab Data Result diagrams: 01/14/17 01:35 01/14/17 01:35 Lab Results 01/14/17 01/14/17 Range/Units 01:35 01:35 WBC 9.1 (3.8-10.6) k/uL RBC 4.41 (3.80-5.40) m/uL Hgb 12.7 (11.4-16.0) gm/dL Hct 40.3 (34.0-46.0) % MCV 91.5 (80.0-100.0) fL MCH 28.7 (25.0-35.0) pg MCHC 31.4 (31.0-37.0) g/dL RDW 14.0 (11.5-15.5) % Plt Count 372 (150-450) k/uL Neutrophils % 66 % Lymphocytes % 24 % Monocytes % 5 % Eosinophils % 4 % Basophils % 1 % Neutrophils # 6.0 (1.3-7.7) k/uL Lymphocytes # 2.2 (1.0-4.8) k/uL Monocytes # 0.4 (0-1.0) k/uL Eosinophils # 0.4 (0-0.7) k/uL Basophils # 0.1 (0-0.2) k/uL ESR 50 H (0-20) mm/hr Sodium 139 (137-145) mmol/L Potassium 4.2 (3.5-5.1) mmol/L Chloride 106 (98-107) mmol/L Carbon Dioxide 26 (22-30) mmol/L Anion Gap 7 mmol/L BUN 15 (7-17) mg/dL Creatinine 0.70 (0.52-1.04) mg/dL Est GFR (MDRD) Af Amer >60 (>60 ml/min/1.73 sqM) Est GFR (MDRD) Non-Af >60 (>60 ml/min/1.73 sqM) Glucose 94 (74-99) mg/dL Calcium 9.3 (8.4-10.2) mg/dL Total Bilirubin 0.2 (0.2-1.3) mg/dL AST 16 (14-36) U/L ALT 31 (9-52) U/L Alkaline Phosphatase 108 (38-126) U/L Total Protein 6.9 (6.3-8.2) g/dL Albumin 3.7 (3.5-5.0) g/dL - Radiology Data Radiology results: report reviewed, image reviewed Two-view x-ray of the chest shows a heart and mediastinum are normal. Lungs are clear. Diaphragm is normal. Bony thorax is intact. There is no pleural effusion. On the lateral view there is major fissure seen at his prominent and there is probably a tiny amount of fluid in the fissure on the left side. Impression by Dr. Morris shows tiny amount of fluid in the left major fissure of uncertain significance. CT of the thoracic spine report reviewed in its entirety with impression by Dr. Morris shows changes at the T8 to 9 disc with erosion of the endplates anteriorly and osteosclerosis consistent with chronic discitis. There is paraspinal inflammatory changes extending from T7 to T10. I see no drainable fluid collection. I see no evidence of an abscess within the spinal canal. Disposition Clinical Impression: Discitis of thoracic region, Paraspinal mass Disposition: Left Against Medical Advice Condition: Serious Instructions: Fever in Adults (ED), Back Pain (ED) Additional Instructions: Take antibiotics as directed. Return here as soon as possible see can be admitted and transferred. Follow-up with your primary care physician as soon as possible. Prescriptions: Clindamycin [Cleocin] 450 mg PO Q6H #120 capsule Referrals: Melony Carnes MD [Primary Care Provider] - 1-2 days Time of Disposition: 02:49
[2017-01-14] MEDS ORDERED: IV VANCOMYCIN PER PHARMACY 1 EACH MISC MISCELLANE PRN (02:29)
[2017-01-14] MEDS ORDERED: NAFCILLIN 2 GM in SODIUM CHLORIDE 0.9% 100 ML IVPB STA (02:29)
[2017-01-14 02:38] LABS: Erythrocyte Sedimentation Rate 50 mm/hr (0-20)
[2017-01-14] MEDS ORDERED: CLINDAMYCIN 150 MG CAP PO STA (02:42)
== END 2017-01-14 03:09 | disposition left against medical advice (07) ==
LOC: EC 23:47
DX: M46.44 Discitis, unspecified, thoracic region (principal); R22.2 Localized swelling, mass and lump, trunk; R70.0 Elevated erythrocyte sedimentation rate; F32.9 Major depressive disorder, single episode, unspecified; F41.9 Anxiety disorder, unspecified; F17.200 Nicotine dependence, unspecified, uncomplicated; Z53.21 Procedure and treatment not carried out due to patient leaving prior to being seen by health care provider; Z88.2 Allergy status to sulfonamides; Z88.8 Allergy status to other drugs, medicaments and biological substances; Z79.899 Other long term (current) drug therapy
CPT/HCPCS: 99284; 96372; 36415; 80053; 85652; 85025; 71020; 72128; J1885

== ENCOUNTER 2017-01-14 06:46 | Observation (INO) | payer OTHER ==
[2017-01-14 06:53] VITALS: RESP 16
[2017-01-14] MEDS ORDERED: KETOROLAC 30 MG/ML 1 ML VIAL IVP STA (07:35)
--- NOTE | 2017-01-14 07:40 | ED ---
General Adult HPI - General Chief complaint: Back Pain/Injury Stated complaint: Back pain Time Seen by Provider: 01/14/17 07:21 Source: patient, RN notes reviewed Mode of arrival: ambulatory Limitations: no limitations - History of Present Illness Initial comments: Patient is a pleasant 46-year-old female presenting to the emergency Department with thoracic back pain. Symptoms have been going on for around a month. Patient has been in the emergency Department a couple of times recently. Patient did have computed tomography scan done last night showing discitis however patient needed to take care of things and left AGAINST MEDICAL ADVICE. Patient has return for admission. Patient did have fevers around a week ago however does not believe she was having fever since that time. Temperature on last visit was 100.2. Patient states discomfort is mid thoracic region and does radiate bilaterally. No weakness. No incontinence. Patient denies any history of IVDA. Patient is on methadone for history of chronic leg pain and states she usually only takes 1 dose or less daily. - Related Data Home Medications Medication Instructions Recorded Confirmed Butalb/Acetaminophen/Caffeine 1 - 2 cap PO Q4HR PRN 12/06/15 01/14/17 [Fioricet 50-300-40 mg Capsule] DULoxetine HCL [Cymbalta] 60 mg PO DAILY 12/06/15 01/14/17 Fluticasone Propionate [Flonase 1 spray EA NOSTRIL DAILY PRN 12/06/15 01/14/17 Allergy Relief] Methadone [Dolophine] 10 mg PO DAILY 12/06/15 01/14/17 Methocarbamol [Robaxin] 750 mg PO HS 12/06/15 01/14/17 buPROPion HCL [Wellbutrin SR] 150 mg PO HS 12/06/15 01/14/17 traZODone HCL 50 mg PO HS 12/06/15 01/14/17 Previous Rx's Medication Instructions Recorded Cyclobenzaprine [Flexeril] 10 mg PO TID #15 tab 01/12/17 Clindamycin [Cleocin] 450 mg PO Q6H #120 capsule 01/14/17 Allergies Allergy/AdvReac Type Severity Reaction Status Date / Time Sulfa (Sulfonamide Allergy Rash/Hives Verified 01/14/17 07:35 Antibiotics) sumatriptan [From Imitrex] Allergy Anaphylaxis Verified 01/14/17 07:35 sumatriptan succinate Allergy Anaphylaxis Verified 01/14/17 07:35 [From Imitrex] Review of Systems ROS Statement: Those systems with pertinent positive or pertinent negative responses have been documented in the HPI. ROS Other: All systems not noted in ROS Statement are negative. Constitutional: Reports: fever Eyes: Denies: eye pain ENT: Denies: ear pain Respiratory: Denies: cough Cardiovascular: Denies: palpitations Endocrine: Denies: fatigue Gastrointestinal: Denies: abdominal pain Genitourinary: Denies: dysuria Musculoskeletal: Reports: back pain Skin: Denies: rash Neurological: Denies: weakness Past Medical History Additional Past Medical History / Comment(s): migraines History of Any Multi-Drug Resistant Organisms: None Reported Past Surgical History: Appendectomy, Section Additional Past Surgical History / Comment(s): oopherectomy Past Psychological History: Anxiety, Depression Smoking Status: Current every day smoker Past Alcohol Use History: Rare Past Drug Use History: None Reported General Exam Limitations: no limitations General appearance: alert, in no apparent distress Head exam: Present: atraumatic Eye exam: Present: normal appearance, PERRL ENT exam: Present: normal oropharynx Neck exam: Present: normal inspection Respiratory exam: Present: normal lung sounds bilaterally Cardiovascular Exam: Present: regular rate, normal rhythm GI/Abdominal exam: Present: soft. Absent: tenderness Extremities exam: Present: normal inspection Back exam: Present: tenderness (Mild tenderness t8 through T10 region.) Neurological exam: Present: alert. Absent: motor sensory deficit Psychiatric exam: Present: normal affect, normal mood Skin exam: Present: normal color. Absent: rash Course Vital Signs 01/14/17 06:51 Temperature 98.5 F Pulse Rate 97 Respiratory 16 Rate Blood Pressure 109/59 O2 Sat by Pulse 97 Oximetry - Reevaluation(s) Reevaluation #1: 01/14/17 07:37 Computed tomography scan from earlier shows T8/T9 discitis with T7 through T10 paraspinal inflammation. 01/14/17 07:40 Dr. Kirk has been paged for admission. For hospital call. 01/14/17 07:58 Case was discussed with Dr. Kirk, who will admit. EKG Findings - EKG Comments: EKG Findings:: Normal sinus rhythm 75. IA 154. QRS 90. QT 356. QTc 397. Normal axis. Low QRS voltage. Poor R-wave progression. No acute ST change. Medical Decision Making - Lab Data Result diagrams: 01/14/17 08:00 01/14/17 08:00 Disposition Clinical Impression: Discitis of thoracic region Disposition: ADMITTED IP TO THIS HOSP Condition: Serious
[2017-01-14] MEDS ORDERED: VANCOMYCIN IV PER PHARMACY 1 EACH MISC MISCELLANE PRN (07:58)
[2017-01-14] MEDS: SODIUM CHLORIDE 0.9% 500 ML IV SCH ×2 (07:58→08:48)
[2017-01-14] MEDS ORDERED: AMPICILLIN-SULBACTAM 3 GM in SODIUM CHLORIDE 0.9% 100 ML IVPB STA (07:58)
[2017-01-14] MEDS ORDERED: HYDROcodone/APAP 5-325MG 1 EACH TAB PO PRN (07:59)
[2017-01-14] MEDS ORDERED: NALOXONE 0.4 MG/ML 1 ML VIAL IV PRN (07:59)
[2017-01-14] MEDS ORDERED: ACETAMINOPHEN TAB 325 MG TAB PO PRN (07:59)
[2017-01-14] MEDS ORDERED: KETOROLAC 30 MG/ML 1 ML VIAL IVP PRN (07:59)
[2017-01-14] MEDS ORDERED: VANCOMYCIN 1,500 MG in SODIUM CHLORIDE 0.9% 250 ML IVPB STA (08:03)
[2017-01-14 08:10] LABS: Basophils # (A) 0.1 k/uL (0-0.2); Basophils % (A) 1 %; Eosinophils # (A) 0.4 k/uL (0-0.7); Eosinophils % (A) 5 %; HCT 38.5 % (34.0-46.0); Lymphocytes # (A) 2.4 k/uL (1.0-4.8); Lymphocytes % (A) 26 %; MCH 28.7 pg (25.0-35.0); MCHC 31.3 g/dL (31.0-37.0); MCV 91.9 fL (80.0-100.0); Mean Platelet Volume 6.6; Monocytes # (A) 0.4 k/uL (0-1.0); Monocytes % (A) 5 %; Neutrophils # (A) 5.8 k/uL (1.3-7.7); Neutrophils % (A) 63 %; Platelet Count 368 k/uL (150-450); RBC 4.19 m/uL (3.80-5.40); RDW 14.1 % (11.5-15.5); WBC 9.2 k/uL (3.8-10.6)
[2017-01-14 08:18] LABS: INR 0.9 (<1.2); Partial Thromboplastin Time 26.7 sec (22.0-30.0); Prothrombin Time 9.7 sec (9.0-12.0)
[2017-01-14 08:29] LABS: ALT 26 U/L (9-52); Albumin 3.9 g/dL (3.5-5.0); Alkaline Phosphatase 103 U/L (38-126); Anion Gap 9 mmol/L; Blood Urea Nitrogen 19 mg/dL (7-17); Calcium 9.5 mg/dL (8.4-10.2); Carbon Dioxide 25 mmol/L (22-30); Chloride 107 mmol/L (98-107); Glucose 88 mg/dL (74-99); Potassium 4.4 mmol/L (3.5-5.1); Sodium 141 mmol/L (137-145); Total Bilirubin 0.2 mg/dL (0.2-1.3); Total Protein 7.4 g/dL (6.3-8.2)
[2017-01-14 08:52] LABS: AST 18 U/L (14-36)
[2017-01-14 08:53] VITALS: BP 95/57; PULSE 76; TEMP 97.3
[2017-01-14 09:04] LABS: Appearance,Urine Cloudy (Clear); Bacteria,Urine Rare /hpf; Bilirubin,Urine 1+ (Negative); Blood,Urine Negative (Negative); Color,Urine Dark Yellow; Glucose,Urine (UA) Negative (Negative); Ketones,Urine Trace (Negative); Leukocyte Esterase,Urine Large (Negative); Mucus,Urine Many /hpf; Nitrite,Urine Negative (Negative); PH, Urine 5.5 (5.0-8.0); Protein,Urine 1+ (Negative); RBC,Urine 3 /hpf (0-5); Squamous Epithelial Cell,Urine 14 /hpf (0-4); WBC,Urine 16 /hpf (0-5)
[2017-01-14] MEDS ORDERED: AMPICILLIN-SULBACTAM 3 GM in SODIUM CHLORIDE 0.9% 100 ML IVPB SCH (16:00)
[2017-01-14] MEDS ORDERED: VANCOMYCIN 1,250 MG in SODIUM CHLORIDE 0.9% 250 ML IVPB SCH (18:00)
--- NOTE | 2017-01-15 04:54 | HP ---
HISTORY AND PHYSICAL CHIEF COMPLAINT: Back pain and discitis. HISTORY OF PRESENT ILLNESS: This lady was admitted through the emergency room to the floor. After she arrived on the floor, she signed herself out. There is no history that could be taken or physical performed. She was admitted to the hospital diagnosis with discitis. PLAN: Plan was to have her evaluated by Infectious Disease, but she signed out. ONI / SHARIF: [id number] /
--- NOTE | 2017-01-15 08:34 | DS ---
DISCHARGE SUMMARY CHIEF COMPLAINT: Diskitis. HISTORY OF PRESENT ILLNESS: No history is obtained because she signed out. PHYSICAL EXAM: No physical exam is done because she signed out. FINAL DIAGNOSIS: Diskitis of the dorsal spine and she signed out AMA and was not treated or seen in consultation. She is given no discharge prescriptions or instructions. MMODL / MANUELN: [id number] /
== END 2017-01-14 10:35 | disposition left against medical advice (07) ==
LOC: EC 06:46 → 5MS5E 07:59 → INTOOBSV 07:59 → 5MS5E 08:33
PROVIDERS: ADMIT Family Medicine; ATTEND Family Medicine
DX: M46.44 Discitis, unspecified, thoracic region (principal); F32.9 Major depressive disorder, single episode, unspecified; F41.9 Anxiety disorder, unspecified; F17.200 Nicotine dependence, unspecified, uncomplicated; G43.909 Migraine, unspecified, not intractable, without status migrainosus; G89.29 Other chronic pain; M79.606 Pain in leg, unspecified; Z79.891 Long term (current) use of opiate analgesic; Z79.899 Other long term (current) drug therapy; Z90.49 Acquired absence of other specified parts of digestive tract; Z88.2 Allergy status to sulfonamides; Z88.8 Allergy status to other drugs, medicaments and biological substances
CPT/HCPCS: 96365; 96375; 99285; 36415; 93005; 80053; 83605; 85025; 85610; 85730; 81001; 87040; 87086; G0378; J1885; J0295; 96361; 96374

== ENCOUNTER 2017-01-20 03:22 | Emergency (ER) | payer OTHER ==
[2017-01-20 03:27] VITALS: BP 114/66; PULSE 96; RESP 18; TEMP 99.2
[2017-01-20] MEDS ORDERED: KETOROLAC 60 MG/2 ML VIAL IM STA (03:38)
--- NOTE | 2017-01-20 03:41 | ED ---
General Adult HPI - General Chief complaint: Back Pain/Injury Stated complaint: t-spine pain Time Seen by Provider: 01/20/17 03:29 Source: patient, RN notes reviewed Mode of arrival: ambulatory Limitations: no limitations - History of Present Illness Initial comments: 47-year-old female presents emergency department with a chief complaint of back pain. Patient was diagnosed with cystitis she was admitted to the hospital started on clindamycin. She states that she continues to have this back discomfort. She states there is nothing we can do for her here. She states she 's been taking her medications. There is no new fever. She denies any loss by bladder function. She states that she just wants her Toradol and then to go home. She states the pain is moderate in the center of her back. She denies any other symptoms. Patient denies any recent fever, chills, shortness of breath , chest pain, abdominal pain, nausea vomiting, numbness or tingling, dysuria or hematuria, constipation or diarrhea, headaches or visual changes, or any other current symptoms. - Related Data Home Medications Medication Instructions Recorded Confirmed Butalb/Acetaminophen/Caffeine 1 - 2 cap PO Q4HR PRN 12/06/15 01/20/17 [Fioricet 50-300-40 mg Capsule] DULoxetine HCL [Cymbalta] 60 mg PO DAILY 12/06/15 01/20/17 Fluticasone Propionate [Flonase 1 spray EA NOSTRIL DAILY PRN 12/06/15 01/20/17 Allergy Relief] Methadone [Dolophine] 10 mg PO DAILY 12/06/15 01/20/17 Methocarbamol [Robaxin] 750 mg PO HS 12/06/15 01/20/17 buPROPion HCL [Wellbutrin SR] 150 mg PO HS 12/06/15 01/20/17 traZODone HCL 50 mg PO HS 12/06/15 01/20/17 Previous Rx's Medication Instructions Recorded Cyclobenzaprine [Flexeril] 10 mg PO TID #15 tab 01/12/17 Clindamycin [Cleocin] 450 mg PO Q6H #120 capsule 01/14/17 Allergies Allergy/AdvReac Type Severity Reaction Status Date / Time Sulfa (Sulfonamide Allergy Rash/Hives Verified 01/14/17 07:35 Antibiotics) sumatriptan [From Imitrex] Allergy Anaphylaxis Verified 01/14/17 07:35 sumatriptan succinate Allergy Anaphylaxis Verified 01/14/17 07:35 [From Imitrex] Review of Systems ROS Statement: Those systems with pertinent positive or pertinent negative responses have been documented in the HPI. ROS Other: All systems not noted in ROS Statement are negative. Past Medical History Additional Past Medical History / Comment(s): migraines History of Any Multi-Drug Resistant Organisms: None Reported Past Surgical History: Appendectomy, Section Additional Past Surgical History / Comment(s): oopherectomy Past Psychological History: Anxiety, Depression Smoking Status: Current every day smoker Past Alcohol Use History: Rare Past Drug Use History: None Reported General Exam Limitations: no limitations General appearance: alert, in no apparent distress ENT exam: Present: normal exam, mucous membranes moist Neck exam: Present: normal inspection. Absent: tenderness, meningismus, lymphadenopathy Respiratory exam: Present: normal lung sounds bilaterally. Absent: respiratory distress, wheezes, rales, rhonchi, stridor Cardiovascular Exam: Present: regular rate, normal rhythm, normal heart sounds. Absent: systolic murmur, diastolic murmur, rubs, gallop, clicks Extremities exam: Present: normal inspection, full ROM, normal capillary refill. Absent: tenderness, pedal edema, joint swelling, calf tenderness Back exam: Present: normal inspection, full ROM, tenderness (Due the lower thoracic and upper lumbar spine). Absent: CVA tenderness (R), CVA tenderness (L ), muscle spasm, paraspinal tenderness, vertebral tenderness Neurological exam: Present: alert, oriented X3 Psychiatric exam: Present: normal affect, normal mood Skin exam: Present: warm, dry, intact, normal color. Absent: rash Course Vital Signs 01/20/17 03:23 Temperature 99.2 F Pulse Rate 96 Respiratory 18 Rate Blood Pressure 114/66 O2 Sat by Pulse 97 Oximetry Medical Decision Making - Medical Decision Making 47-year-old female presents emergency Department chief complaint of back pain. This time we discussed thorough workup with lab work we discussed imaging we did discuss additional testing. Patient states she does not want have this done. She has had this done she just wants TO GO HOME. AT THIS TIME WE DISCUSSED THAT WE CANNOT TELL HER FOR SURE THAT IS NOT WORSENING. SHE STATED THAT SHE WILL FOLLOW-UP WITH HER DOCTOR FOR THAT SHE JUST NEEDS TO GO HOME AT THIS TIME. THIS TIME WE WILL RESPECT HER WISHES WE WILL GIVE HER TORADOL INJECTION PATIENT WILL BE DISCHARGED. WE DISCUSSED RISKS OF THIS. Disposition Clinical Impression: Back pain Disposition: HOME SELF-CARE Condition: Stable Instructions: Acute Low Back Pain (ED) Additional Instructions: Please use medication as discussed. Please follow up with family doctor if symptoms have not improved over the next two days. Please return to the emergency room if your symptoms increase or worsen or for any other concerns. Referrals: Melony Carnes MD [Primary Care Provider] - 1-2 days Time of Disposition: 03:41
== END 2017-01-20 03:54 | disposition home or self-care (01) ==
LOC: EC 03:22
DX: M54.9 Dorsalgia, unspecified (principal); F32.9 Major depressive disorder, single episode, unspecified; F41.9 Anxiety disorder, unspecified; F17.200 Nicotine dependence, unspecified, uncomplicated; Z79.891 Long term (current) use of opiate analgesic; Z79.899 Other long term (current) drug therapy; Z88.2 Allergy status to sulfonamides; Z88.8 Allergy status to other drugs, medicaments and biological substances
CPT/HCPCS: 96372; 99283